=== PATIENT | female | born 1985 | race Asian ===

== ENCOUNTER 2017-12-07 08:54 | Emergency (ER) | payer OTHER ==
[~2017-12-07] VITALS: Ht 162.6 cm; Wt 58.1 kg
--- NOTE | 2017-12-07 09:03 | ED GENERAL ADULT ---
History of Present Illness General Chief Complaint: General Adult Stated Complaint: NEEDLE STICK Source: patient Exam Limitations: no limitations Allergies Coded Allergies: No Known Allergies (12/07/17) Reconcile Medications No Known Home Medications Triage Note: PT WAS STARTING AN IV ON A PT WHEN SHE WAS STUCK BY A DIRTY NEEDLE. PT SQUEEZED AND WASHED THE BLOOD OUT. PT IS 20 WKSS Triage Nurses Notes Reviewed? yes Onset: Abrupt Duration: minute(s): Timing: single episode today Injury Environment: work : Yes Patient currently breastfeeds: No HPI: 32-year-old female who is 20 weeks presents to emergency department following needlestick at work prior to arrival. 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 Patient was stuck on the palm of her left hand. Patient squeezed the wound to express blood and irrigated extensively with soap and water. Following irrigation patient presented here to ED. Patient is up-to-date with hepatitis B and tetanus vaccines. (Sydnie Milian) Vital Signs & Intake/Output Vital Signs & Intake/Output ED Intake and Output 12/08 0000 12/07 1200 Intake Total 0 Output Total Balance 0 Intake, Oral 0 Patient 128 lb Weight Weight Reported by Patient Measurement Method (Evita BRITO,Miky Marcelo) Past History Travel History Traveled to [place] past 21 day No Medical History Any Pertinent Medical History? none Surgical History Surgical History: non-contributory Psychosocial History What is your primary language Vietnamese Tobacco Use: Never used ETOH Use: denies use Illicit Drug Use: denies illicit drug use Family History Hx Contributory? No (Sydnie Milian) Review of Systems Review of Systems Constitutional: Reports: no symptoms. EENTM: Reports: no symptoms. Respiratory: Reports: no symptoms. Cardiovascular: Reports: no symptoms. GI: Reports: no symptoms. Genitourinary: Reports: no symptoms. Musculoskeletal: Reports: no symptoms. Skin: Reports: see HPI. Neurological/Psychological: Reports: no symptoms. Hematologic/Endocrine: Reports: see HPI. Immunologic/Allergic: Reports: no symptoms. All Other Systems: Reviewed and Negative (Sydnie Milian) Physical Exam Physical Exam General Appearance: well developed/nourished, no apparent distress, alert, awake Head: atraumatic, normal appearance Eyes: Bilateral: normal appearance. Ears, Nose, Throat: hearing grossly normal Neck: normal inspection, supple, full range of motion Respiratory: no respiratory distress Back: normal inspection, normal range of motion Extremities: small puncture wound to palm of left hand without active bleeding or drainage Neurologic/Psych: awake, alert, oriented x 3 Skin: puncture wound of hand Core Measures ACS in differential dx? No CVA/TIA Diagnosis: No Sepsis Present: No Sepsis Focused Exam Completed? No (Amanda LOUIS,Sydnie Todd) Progress Differential Diagnoses I considered the following diagnoses in my evaluation of the patient: [ Needlestick, exposure to blood-borne pathogens] Initial ED EKG: none (Amanda LOUIS,Sydnie Todd) Plan of Care: Laboratory Tests 12/07/17 0935: Anion Gap 8, Estimated GFR > 60, BUN/Creatinine Ratio 22.5, Glucose 77, Calcium 8.6, Total Bilirubin 0.3, GGT 14, AST 25, ALT 30, Alkaline Phosphatase 35, Total Protein 6.5, Albumin 3.7, Globulin 2.8, Albumin/Globulin Ratio 1.3, Total Beta HCG POSITIVE, CBC w Diff NO MAN DIFF REQ, RBC 3.51 L, MCV 94.0, MCH 32.1 H, MCHC 34.1, RDW 12.9, MPV 6.6 L, Gran % 69.7, Lymphocytes % 23.0, Monocytes % 6.7, Eosinophils % 0.4, Basophils % 0.2, Absolute Granulocytes 3.7, Absolute Lymphocytes 1.2, Absolute Monocytes 0.4, Absolute Eosinophils 0, Absolute Basophils 0, Hep Bs Antibody REACTIVE, Hepatitis C Antibody NONREACTIVE, HIV 1&2 Antibody NONREACTIVE Patient has already extensively irrigated needlestick prior to arrival here in the emergency department. She consents to obtaining labs to evaluate for HIV, hepatitis. I discussed risk of HIV exposure from needlestick (0.3%) and counseled patient regarding postexposure prophylaxis. Patient elects to forego postexposure prophylactic medications at this time given the risks of side effects and the affect of her . Consent and lab testing from source patient are still pending over source patient is known. Will inform patient of results of her testing. Patient to follow-up with occupational medicine for repeat screening tests as directed. She agrees with the plan of care. Dr. Jama saw and evaluated the patient and he agrees with the plan of care. Exposed patient and source patient show results are nonreactive. (Sydnie Milian) (Miky Jama MD) Departure Departure Disposition: HOME OR SELF CARE Condition: Stable Clinical Impression Primary Impression: Needle stick injury of finger of left hand Qualifiers: Encounter type: initial encounter Qualified Codes: S61.239A - Puncture wound without foreign body of unspecified finger without damage to nail , initial encounter; W27.3XXA - Contact with needle (sewing), initial encounter Additional Instructions: As discussed, follow-up with occupational medicine for repeat hiv/hepatitis screening labs. We will call you with results of your lab tests. Please note that there might be incidental findings in your evaluation that are unrelated to the current emergency department visit. Please notify your primary care doctor about this emergency department visit in order to obtain and review all of the testing performed so that these incidental findings can be monitored as needed. If you had an x-ray performed, please understand that some fractures may not be seen on the initial set of x-rays. If your symptoms persist you might need a repeat set of x-rays to check for such a fracture. If you had a laceration evaluated, please understand that foreign bodies such as glass or wood may not be visible to the naked eye or on plain x-rays. If the wound becomes red, swollen, increasingly more painful or if there is any drainage from the wound, please have it reevaluated by a physician for the possibility of a retained foreign body. If you're unable to follow up as outlined in the discharge instructions please return to the emergency department. Thank you for choosing the [facility] Emergency Department for your care. It was a pleasure to serve you today. Departure Forms: Customer Survey General Discharge Information Prescriptions: Current Visit Scripts No Known Home Medications (Sydnie Milian) PA/AUTOMATIC HEMMER Co-Sign Statement Statement: ED Attending supervision documentation- [X] I saw and evaluated the patient. I have also reviewed all the pertinent lab results and diagnostic results. I agree with the findings and the plan of care as documented in the PA's/AUTOMATIC HEMMER's documentation. [] I have reviewed the ED Record and agree with the PA's/AUTOMATIC HEMMER's documentation. [] Additions or exceptions (if any) to the PAs/AUTOMATIC HEMMER's note and plan are summarized below: [] (Evita BRITO,Miky Marcelo) Critical Care Note Critical Care Note Critical Care Time: non-applicable (Amanda LOUIS,Sydnie Todd) (Evita BRITO,Miky Marcelo)
[2017-12-07 09:46] LABS: ABSOLUTE BASOPHIL COUNT 0 /CUMM (0.0-0.2); ABSOLUTE EOSINOPHIL COUNT 0 /CUMM (0.0-0.7); ABSOLUTE GRANULOCYTE CT 3.7 /CUMM (1.4-6.5); ABSOLUTE LYMPH COUNT 1.2 /CUMM (1.2-3.4); ABSOLUTE MONOCYTE COUNT 0.4 /CUMM (0.10-0.60); BASOPHIL % 0.2 % (0.0-2.0); EOSINOPHIL % 0.4 % (0-5); GRANULOCYTE % 69.7 % (42.2-75.2); MEAN CORPUSCULAR HGB 32.1 PG (27.0-31.0); MEAN CORPUSCULAR HGB CONC 34.1 G/DL (33.0-37.0); MEAN PLATELET VOLUME 6.6 FL (7.4-10.4); PLATELET COUNT 252 /CUMM (130-400); RBC DISTRIBUTION WIDTH 12.9 % (11.5-14.5); RED BLOOD CELL CT 3.51 /CUMM (4.20-5.40); WHITE BLOOD CELL COUNT 5.3 /CUMM (4.8-10.8)
== END 2017-12-07 10:01 ==
LOC: ERH 08:54
PROVIDERS: Physician Assistant
DX: O9A.212 Injury, poisoning and certain other consequences of external causes complicating pregnancy, second trimester (principal); S61.432A Puncture wound without foreign body of left hand, initial encounter; Z3A.20 20 weeks gestation of pregnancy; W46.1XXA Contact with contaminated hypodermic needle, initial encounter; Y93.89 Activity, other specified; Y92.9 Unspecified place or not applicable
CPT/HCPCS: 86803; 87389